=== PATIENT | male | born 1960 | race Caucasian/White ===

== ENCOUNTER → 2020-10-11 | Outpatient (CLI) | payer BC ==
--- NOTE | 2020-10-11 19:18 | RAD ---
XR LT WRIST 3VIEWS History: Reason: LEFT WRIST PAIN / Spl. Instructions: / History: Technique: 3 views left wrist Comparison: None. Findings: Acute left distal ulnar shaft fracture. Mild distal radial ulnar degenerative changes. Moderate first carpal metacarpal triscaphe DJD. Impression: 1. Acute nondisplaced left distal ulnar fracture. Electronically signed by: Boston Westbrook DO (10/11/2020 7:16 PM) [facility]
== END ==
LOC: PMG 18:36
PROVIDERS: ATTEND Nurse Practitioner Family
DX: S52.602A Unspecified fracture of lower end of left ulna, initial encounter for closed fracture (principal); X58.XXXA Exposure to other specified factors, initial encounter; Y93.89 Activity, other specified; Y92.89 Other specified places as the place of occurrence of the external cause; Y99.8 Other external cause status
CPT/HCPCS: 73110